=== PATIENT | female | born 1970 | race Two or more races ===

== ENCOUNTER 2019-07-07 21:37 | Emergency (ER) | payer SELFPAY ==
[~2019-07-07] VITALS: Ht 167.6 cm; Wt 11.3 kg
[2019-07-07] MEDS ORDERED: ONDANSETRON 2MG/ML, 2ML ONE (23:25)
[2019-07-07] MEDS ORDERED: MORPHINE SULFATE 4 MG/ML, 1ML ONE (23:25)
[2019-07-08] MEDS ORDERED: OMNIPAQUE 350 MG/ML, 100ML BOTTLE ONE (01:00)
--- NOTE | 2019-07-08 01:37 | NUR ---
Pt in during down time, see paper charting for care prior to this event.
[2019-07-08 01:59] VITALS: BP 108/63
--- NOTE | 2019-07-08 02:21 | NUR ---
Discharge instructions given to pt. Pt understood and all questions and concerns addressed. Pt ambulated with a steady gait. Belongings with pt.
[2019-07-08 14:14] LABS: MICROSCOPIC INDICATED
[2019-07-08 14:19] LABS: CULTURE INDICATED? YES
[2019-07-08 14:48] LABS: MEAN CORPUSCULAR HEMOGLOBIN 32.1 pg (27.0-34.8); MEAN CORPUSCULAR HGB CONC 33.7 g/dL (32.4-35.8); MEAN CORPUSCULAR VOLUME 95.2 fL (80-100); RED BLOOD COUNT 4.27 x10^6/uL (3.82-5.3); RED CELL DISTRIBUTION WIDTH 12.9 % (9.6-15.2)
[2019-07-08 14:49] LABS: BASOPHILS % (AUTO) 0 % (0-1); EOSINOPHILS % (AUTO) 3 % (1-7); LYMPHOCYTES # (AUTO) 1.45 x10^3/uL (1-3.4); LYMPHOCYTES % (AUTO) 27 % (22-44); MEAN PLATELET VOLUME 9.7 fL (7.4-10.4); MONOCYTES # (AUTO) 0.65 x10^3/uL (0.2-0.8); MONOCYTES % (AUTO) 12 % (2-9); NEUTROPHILS # (AUTO) 3.02 x10^3/uL (1.8-6.8); NEUTROPHILS % (AUTO) 57 % (42-75); PLATELET COUNT 173 x10^3/uL (130-400)
[2019-07-08 14:50] LABS: BASOPHILS # (AUTO) 0.03 x10^3/uL (0-0.1); EOSINOPHILS # (AUTO) 0.17 x10^3/uL (0-0.4); MD NO
[2019-07-08 15:01] LABS: ALANINE AMINOTRANSFERASE 32 U/L (12-78); ALKALINE PHOSPHATASE 48 U/L (45-117); ANION GAP 7 mmol/L (5-15); BILIRUBIN, DIRECT 0.1 mg/dL (0.1-0.2); BILIRUBIN,INDIRECT 0.5 mg/dL (0.0-2.0); BILIRUBIN,TOTAL 0.6 mg/dL (0.2-1.0); CALCIUM 8.6 mg/dL (8.5-10.1); CHLORIDE 109 mmol/L (98-107); TOTAL PROTEIN 7.1 g/dL (6.4-8.2)
== END 2019-07-08 02:26 | disposition home or self-care (01) ==
LOC: ED 07-08 00:47
DX: K80.20 Calculus of gallbladder without cholecystitis without obstruction (principal); R10.13 Epigastric pain
CPT/HCPCS: 36415; 74177; 80048; 80076; 81001; 82150; 83690; 84703; 85025; 87086; 93005; 99284; Q9967